=== PATIENT | male | born 1970 | race Caucasian/White ===

== ENCOUNTER 2019-06-02 20:55 | Inpatient (IN) | payer MEDICAID, OTHER ==
[~2019-06-02] VITALS: Ht 167.6 cm; Wt 69.6 kg
[2019-06-02] MEDS ORDERED: HYDROmorphone 1 MG/ML, 1ML INJ ONE (21:29)
[2019-06-02] MEDS ORDERED: ONDANSETRON 2MG/ML, 2ML ONE (21:29)
[2019-06-02] MEDS ORDERED: SODIUM CHLORIDE 0.9% 1,000ML IVBOLUS ONE ×3 (21:30→22:30)
[2019-06-02] MEDS ORDERED: SODIUM CHLORIDE FLUSH 10ML SYR IVF ONE ×2 (21:30→22:30)
[2019-06-02] MEDS ORDERED: ONDANSETRON 2MG/ML, 2ML IVPush ONE (21:30)
[2019-06-02] MEDS ORDERED: HYDROmorphone 2 MG/ML, 1ML IVPush PRN (21:30)
--- NOTE | 2019-06-02 21:30 | NUR ---
Late entry: Pt arrives to ed with c/o of abd pain and new onset of chest pain and hernia as well. Pt denies recent trauma. Pt found to be hotn and tachycardic in room. Pt is still a/ox4. Pt is tender with palpation to abdomen. Pt had piv placed and medicated per emar. awaiting further orders.
[2019-06-02] MEDS ORDERED: FENTANYL PF 100 MCG/2ML ONE (21:36)
[2019-06-02 21:38] LABS: MEAN CORPUSCULAR HEMOGLOBIN 30.2 pg (27.5-34.5); MEAN CORPUSCULAR HGB CONC 33.3 g/dL (33.2-36.2); MEAN CORPUSCULAR VOLUME 90.7 fL (81-97); MEAN PLATELET VOLUME 7.9 fL (7.4-10.4); PLATELET COUNT 273 x10^3/uL (130-400); RED BLOOD COUNT 4.96 x10^6/uL (4.38-5.82); RED CELL DISTRIBUTION WIDTH 13.4 % (9.4-14.8)
[2019-06-02] MEDS: FENTANYL PF 100 MCG/2ML IVPush PRN ×2 (21:40→23:17)
--- NOTE | 2019-06-02 21:44 | NUR ---
CT PENDING CREATINE.
[2019-06-02 21:50] LABS: ALANINE AMINOTRANSFERASE 24 U/L (12-78); ALBUMIN 2.8 g/dL (3.4-5.0); ANION GAP 12 mmol/L (5-15); CHLORIDE 101 mmol/L (98-107); CREATININE 2.27 mg/dL (0.7-1.3)
[2019-06-02 21:54] LABS: ALKALINE PHOSPHATASE 96 U/L (45-117); BILIRUBIN,TOTAL 2.8 mg/dL (0.2-1.0); TOTAL PROTEIN 7.4 g/dL (6.4-8.2)
[2019-06-02 21:55] LABS: MD YES
[2019-06-02 21:56] LABS: TROPONIN I 0.313 ng/mL (0.000-0.045)
[2019-06-02 21:57] LABS: BAND#(MANUAL) 3.61 x10^3/uL; BANDS%(MANUAL) 14 % (0-7); LYMPH#(MANUAL) 1.55 x10^3/uL (1-3.4); LYMPHS% (MANUAL) 6 % (22-44); MONOS#(MANUAL) 1.03 x10^3/uL (0.3-2.7); MONOS% (MANUAL) 4 % (2-9); SEG#(MANUAL) 19.61 x10^3/uL (1.8-6.8); SEGS% (MANUAL) 76 % (42-75)
[2019-06-02 21:58] LABS: <PLATELET ESTIMATE> ADEQUATE; <PLT MORPHOLOGY> NORMAL PLT MORPH; <RBC MORPHOLOGY> NORMAL
--- NOTE | 2019-06-02 22:11 | NUR ---
Spoke provider, pt labs indicating multiorgan failure. at this time we need to give 30cc/kg, and pt to have ct with contrast. Pt conditon updated to charge nurseDEE DEE Peterson.
[2019-06-02] MEDS ORDERED: VANCOMYCIN PER PHARMACY MC ONE (22:30)
[2019-06-02] MEDS ORDERED: VANCOMYCIN 1,500 MG in SODIUM CHLORIDE 0.9% 250 ML IV ONE (22:30)
[2019-06-02] MEDS ORDERED: PIPERACILLIN/TAZO/PMX 3.375GM 50 ML IVPB ONE (22:30)
[2019-06-02] MEDS ORDERED: OMNIPAQUE 350 MG/ML, 100ML BOTTLE ONE (22:36)
[2019-06-02] MEDS ORDERED: PIPERACILLIN/TAZO/PMX 3.375GM 50 ML ONE (22:52)
[2019-06-02] MEDS ORDERED: AZITHROMYCIN 500 MG in SODIUM CHLORIDE 0.9% 250 ML IV ONE (23:00)
--- NOTE | 2019-06-02 23:23 | NUR ---
BLOOD CULTURES COLLECTED, ABX STARTED. FLUID MAINTENANCE STARTED.
[2019-06-02] MEDS ORDERED: ASPIRIN 325 MG TABLET PO ONE (23:30)
--- NOTE | 2019-06-02 23:38 | NUR ---
pT MOVED TO TRAUMA 4 AT MD REQUEST FOR SPACE TO PLACE CVAD TRIPLE LUMEN IN PATIENT.
--- NOTE | 2019-06-02 23:39 | NUR ---
Bedside report to Norberto FUNEZ
--- NOTE | 2019-06-02 23:39 | NUR ---
This rn assumed care of pt. Drips infusing appropriately. Will set up for central line.
[2019-06-02] MEDS ORDERED: NOREPINEPHRINE 8 MG in SODIUM CHLORIDE 0.9% 242 ML IV PRN (23:40)
[2019-06-02] MEDS ORDERED: LIDOCAINE 1%-EPI 1:100K, 20ML ONE (23:46)
--- NOTE | 2019-06-02 23:49 | NUR ---
Central line consent signed and placed on chart. Awaiting md for placement.
[2019-06-03] MEDS ORDERED: ACETAMINOPHEN 650 MG SUPP PR PRN
[2019-06-03] MEDS: AZITHROMYCIN 500 MG in SODIUM CHLORIDE 0.9% 250 ML IVPB SCH
[2019-06-03] MEDS ORDERED: SODIUM CHLORIDE 0.9% 1,000ML IVBOLUS ONE
[2019-06-03] MEDS ORDERED: GUAIFENESIN/COD200MG-20MG/10ML LIQUID PO PRN
[2019-06-03] MEDS ORDERED: morphine SULFATE 10 MG/ML, 1ML IVPush PRN
[2019-06-03] MEDS ORDERED: SODIUM CHLORIDE 0.9%, 500ML IVBOLUS PRN ×2
[2019-06-03] MEDS ORDERED: PHARMACY MAY ADJ FOR RENAL FX MC PRN
[2019-06-03] MEDS ORDERED: VANCOMYCIN PER PHARMACY MC PRN
[2019-06-03] MEDS ORDERED: ONDANSETRON 2MG/ML, 2ML IVPB PRN
[2019-06-03] MEDS ORDERED: NOREPINEPHRINE 8 MG in SODIUM CHLORIDE 0.9% 242 ML IV PRN
--- NOTE | 2019-06-03 00:27 | NUR ---
Central line placed at this time via md. Bp map good w/o levo. Levo in room for potential need of bp support.
--- NOTE | 2019-06-03 00:49 | NUR ---
Central line ok to be used per ERMD and cxr.
[2019-06-03 00:55] LABS: ALANINE AMINOTRANSFERASE 18 U/L (12-78); ALBUMIN 2.1 g/dL (3.4-5.0); ANION GAP 8 mmol/L (5-15); CALCIUM 7.3 mg/dL (8.5-10.1); CHLORIDE 107 mmol/L (98-107)
[2019-06-03 00:58] LABS: HCT (SEDRATE) 38.4 % (39.2-51.8)
[2019-06-03 01:00] LABS: ALKALINE PHOSPHATASE 71 U/L (45-117); BILIRUBIN,TOTAL 2.4 mg/dL (0.2-1.0); FREE T4 (FREE THYROXINE) 1.16 ng/dL (0.76-1.46); TOTAL PROTEIN 5.8 g/dL (6.4-8.2); TROPONIN I 0.191 ng/mL (0.000-0.045)
[2019-06-03] MEDS: HEPARIN 5,000 UNITS/ML, 1ML SQ SCH ×4 (01:58→23:54)
[2019-06-03] MEDS: NICOTINE 14MG/24 HR PATCH.TD24 TD SCH ×2 (01:58→23:51)
[2019-06-03] MEDS: PIPERACILLIN/TAZO/PMX 4.5GM 50 ML IVPB SCH ×5 (01:58→23:54)
[2019-06-03] MEDS: PANTOPRAZOLE 40 MG IV IV SCH ×2 (01:58→23:55)
[2019-06-03] MEDS ORDERED: PHARMACOKINETIC MONITORING MC PRN (02:30)
[2019-06-03] MEDS ORDERED: PHARMACOKINETIC CONSULTATION MC ONE (02:30)
[2019-06-03] MEDS: OXYcodone IR 5MG TABLET PO PRN ×4 (03:04→22:03)
[2019-06-03 03:21] VITALS: BP 101/69
[2019-06-03 05:08] LABS: MEAN CORPUSCULAR HEMOGLOBIN 30.2 pg (27.5-34.5); MEAN CORPUSCULAR VOLUME 91.6 fL (81-97); MEAN PLATELET VOLUME 7.8 fL (7.4-10.4); PLATELET COUNT 285 x10^3/uL (130-400); RED BLOOD COUNT 4.38 x10^6/uL (4.38-5.82); RED CELL DISTRIBUTION WIDTH 13.7 % (9.4-14.8)
[2019-06-03 05:15] LABS: ALBUMIN 2.1 g/dL (3.4-5.0); ANION GAP 8 mmol/L (5-15); CALCIUM 7.2 mg/dL (8.5-10.1); CHLORIDE 109 mmol/L (98-107)
[2019-06-03 05:22] LABS: ALANINE AMINOTRANSFERASE 17 U/L (12-78); ALKALINE PHOSPHATASE 76 U/L (45-117); BILIRUBIN,TOTAL 2.4 mg/dL (0.2-1.0); TOTAL PROTEIN 5.9 g/dL (6.4-8.2); TROPONIN I 0.194 ng/mL (0.000-0.045)
[2019-06-03 05:38] LABS: MD YES
[2019-06-03 05:39] LABS: BAND#(MANUAL) 4.52 x10^3/uL; BANDS%(MANUAL) 18 % (0-7); LYMPH#(MANUAL) 1.76 x10^3/uL (1-3.4); LYMPHS% (MANUAL) 7 % (22-44); METAMYELOCYTES% (MANUAL) 2 % (0-1); MONOS% (MANUAL) 4 % (2-9); SEG#(MANUAL) 17.32 x10^3/uL (1.8-6.8); SEGS% (MANUAL) 69 % (42-75)
[2019-06-03 05:40] LABS: <RBC MORPHOLOGY> NORMAL; PMNS WITH VACUOLES 1+
[2019-06-03 05:41] LABS: <PLATELET ESTIMATE> ADEQUATE; <PLT MORPHOLOGY> NORMAL PLT MORPH
[2019-06-03 07:54] LABS: CULTURE INDICATED? NO; MICROSCOPIC NOT IND
[2019-06-03] MEDS ORDERED: MAGNESIUM SULFATE PMX 4GM/100M 100 ML IVPB ONE (10:30)
[2019-06-03 13:01] LABS: RAPID INFLUENZA A Negative (Negative); RAPID INFLUENZA B Negative (Negative)
[2019-06-03 13:33] LABS: TROPONIN I 0.531 ng/mL (0.000-0.045)
[2019-06-03 19:42] LABS: TROPONIN I 0.587 ng/mL (0.000-0.045)
[2019-06-03] MEDS: ACETAMINOPHEN 650 MG/20.3 ML UDC PO PRN (22:04)
[2019-06-03] MEDS ORDERED: VANCOMYCIN 1,400 MG in SODIUM CHLORIDE 0.9% 250 ML IV SCH (23:00)
[2019-06-04] MEDS: AZITHROMYCIN 500 MG in SODIUM CHLORIDE 0.9% 250 ML IVPB SCH (00:56)
[2019-06-04 01:21] LABS: TROPONIN I 0.527 ng/mL (0.000-0.045)
[2019-06-04 05:17] LABS: ANION GAP 5 mmol/L (5-15); CALCIUM 8.5 mg/dL (8.5-10.1); CHLORIDE 108 mmol/L (98-107)
[2019-06-04 05:20] LABS: CREATININE 1.02 mg/dL (0.7-1.3)
[2019-06-04 05:28] LABS: MEAN CORPUSCULAR HEMOGLOBIN 30.1 pg (27.5-34.5); MEAN CORPUSCULAR HGB CONC 32.9 g/dL (33.2-36.2); MEAN CORPUSCULAR VOLUME 91.4 fL (81-97); MEAN PLATELET VOLUME 7.9 fL (7.4-10.4); PLATELET COUNT 293 x10^3/uL (130-400); RED BLOOD COUNT 4.51 x10^6/uL (4.38-5.82); RED CELL DISTRIBUTION WIDTH 13.5 % (9.4-14.8)
[2019-06-04 05:50] LABS: MD YES
[2019-06-04 05:52] LABS: <RBC MORPHOLOGY> NORMAL; BAND#(MANUAL) 0.97 x10^3/uL; BANDS%(MANUAL) 5 % (0-7); LYMPH#(MANUAL) 1.55 x10^3/uL (1-3.4); LYMPHS% (MANUAL) 8 % (22-44); MONOS#(MANUAL) 0.97 x10^3/uL (0.3-2.7); MONOS% (MANUAL) 5 % (2-9); SEG#(MANUAL) 15.91 x10^3/uL (1.8-6.8); SEGS% (MANUAL) 82 % (42-75)
[2019-06-04 05:53] LABS: <PLATELET ESTIMATE> ADEQUATE; <PLT MORPHOLOGY> NORMAL PLT MORPH
[2019-06-04] MEDS: PIPERACILLIN/TAZO/PMX 4.5GM 50 ML IVPB SCH ×4 (05:58→23:52)
[2019-06-04] MEDS: HEPARIN 5,000 UNITS/ML, 1ML SQ SCH ×3 (08:32→23:51)
[2019-06-04] MEDS: OXYcodone IR 5MG TABLET PO PRN (16:55)
[2019-06-04] MEDS: PANTOPRAZOLE 40 MG IV IV SCH (23:51)
[2019-06-04] MEDS: NICOTINE 14MG/24 HR PATCH.TD24 TD SCH (23:52)
[2019-06-05] MEDS: AZITHROMYCIN 500 MG in SODIUM CHLORIDE 0.9% 250 ML IVPB SCH (01:00)
[2019-06-05 05:25] LABS: MEAN CORPUSCULAR HEMOGLOBIN 30.8 pg (27.5-34.5); MEAN CORPUSCULAR HGB CONC 33.9 g/dL (33.2-36.2); MEAN PLATELET VOLUME 7.6 fL (7.4-10.4); PLATELET COUNT 304 x10^3/uL (130-400); RED BLOOD COUNT 4.14 x10^6/uL (4.38-5.82); RED CELL DISTRIBUTION WIDTH 13.6 % (9.4-14.8)
[2019-06-05 05:34] LABS: ALANINE AMINOTRANSFERASE 19 U/L (12-78); ALBUMIN 1.9 g/dL (3.4-5.0); ANION GAP 8 mmol/L (5-15); CALCIUM 8.3 mg/dL (8.5-10.1); CHLORIDE 108 mmol/L (98-107); CREATININE 0.87 mg/dL (0.7-1.3)
[2019-06-05 05:36] LABS: ALKALINE PHOSPHATASE 99 U/L (45-117); BILIRUBIN,TOTAL 0.8 mg/dL (0.2-1.0); TOTAL PROTEIN 6.4 g/dL (6.4-8.2)
[2019-06-05 05:43] LABS: BASOPHILS # (AUTO) 0.13 x10^3/uL (0-0.1); BASOPHILS % (AUTO) 1 % (0-1); EOSINOPHILS # (AUTO) 0.15 x10^3/uL (0-0.4); EOSINOPHILS % (AUTO) 1 % (1-7); LYMPHOCYTES # (AUTO) 1.79 x10^3/uL (1-3.4); LYMPHOCYTES % (AUTO) 14 % (22-44); MD SCAN; MONOCYTES % (AUTO) 5 % (2-9); NEUTROPHILS # (AUTO) 9.97 x10^3/uL (1.8-6.8); NEUTROPHILS % (AUTO) 79 % (42-75)
[2019-06-05] MEDS: PIPERACILLIN/TAZO/PMX 4.5GM 50 ML IVPB SCH (05:52)
[2019-06-05] MEDS: HEPARIN 5,000 UNITS/ML, 1ML SQ SCH (08:19)
[2019-06-05] MEDS ORDERED: POTASSIUM CHLORIDE 20 MEQ TAB.ER.PRT PO ONE (10:00)
[2019-06-05] MEDS ORDERED: FUROSEMIDE 20 MG/2 ML IV ONE (10:00)
[2019-06-05] MEDS: LISINOPRIL 5 MG TABLET PO SCH ×2 (10:14→20:23)
[2019-06-05] MEDS: SPIRONOLACTONE 25 MG TABLET PO SCH (10:14)
[2019-06-05] MEDS: CEFTRIAXONE PMX 2GM/50ML 50 ML IV SCH (13:14)
[2019-06-05 17:57] VITALS: BP 110/73
[2019-06-05 20:20] VITALS: BP 123/84
[2019-06-05] MEDS: ENOXAPARIN 40 MG/0.4 ML SQ SCH (20:23)
[2019-06-05] MEDS: ACETAMINOPHEN 650 MG/20.3 ML UDC PO PRN (20:23)
[2019-06-05] MEDS: TEMAZEPAM 15 MG CAPSULE PO PRN (20:23)
[2019-06-06 00:43] VITALS: BP 97/61
[2019-06-06] MEDS ORDERED: TEMAZEPAM 15 MG CAPSULE PO ONE (02:00)
[2019-06-06 02:40] VITALS: BP 107/71
[2019-06-06 06:21] LABS: ANION GAP 9 mmol/L (5-15); CHLORIDE 110 mmol/L (98-107); CREATININE 0.81 mg/dL (0.7-1.3)
[2019-06-06 06:28] LABS: BASOPHILS # (AUTO) 0.03 x10^3/uL (0-0.1); BASOPHILS % (AUTO) 0 % (0-1); EOSINOPHILS # (AUTO) 0.13 x10^3/uL (0-0.4); EOSINOPHILS % (AUTO) 1 % (1-7); LYMPHOCYTES # (AUTO) 2.08 x10^3/uL (1-3.4); LYMPHOCYTES % (AUTO) 22 % (22-44); MD NO; MEAN CORPUSCULAR HEMOGLOBIN 29.8 pg (27.5-34.5); MEAN CORPUSCULAR HGB CONC 33.2 g/dL (33.2-36.2); MEAN CORPUSCULAR VOLUME 89.6 fL (81-97); MEAN PLATELET VOLUME 7.8 fL (7.4-10.4); MONOCYTES # (AUTO) 0.49 x10^3/uL (0.2-0.8); MONOCYTES % (AUTO) 5 % (2-9); NEUTROPHILS # (AUTO) 6.62 x10^3/uL (1.8-6.8); NEUTROPHILS % (AUTO) 71 % (42-75); PLATELET COUNT 325 x10^3/uL (130-400); RED CELL DISTRIBUTION WIDTH 13.6 % (9.4-14.8)
[2019-06-06 08:21] VITALS: BP 141/94
[2019-06-06] MEDS: LISINOPRIL 5 MG TABLET PO SCH (09:32)
[2019-06-06] MEDS: SPIRONOLACTONE 25 MG TABLET PO SCH (09:32)
[2019-06-06] MEDS: CEFTRIAXONE PMX 2GM/50ML 50 ML IV SCH (12:55)
[2019-06-06 13:11] VITALS: BP 122/79
[2019-06-06 20:20] VITALS: BP 116/77
[2019-06-06] MEDS: LISINOPRIL 10 MG TABLET PO SCH (21:53)
[2019-06-06] MEDS: ENOXAPARIN 40 MG/0.4 ML SQ SCH (21:54)
[2019-06-07 01:42] VITALS: BP 107/70
[2019-06-07 05:08] LABS: BASOPHILS # (AUTO) 0.02 x10^3/uL (0-0.1); BASOPHILS % (AUTO) 0 % (0-1); EOSINOPHILS # (AUTO) 0.22 x10^3/uL (0-0.4); EOSINOPHILS % (AUTO) 2 % (1-7); LYMPHOCYTES # (AUTO) 2.73 x10^3/uL (1-3.4); LYMPHOCYTES % (AUTO) 27 % (22-44); MD NO; MEAN CORPUSCULAR HEMOGLOBIN 29.8 pg (27.5-34.5); MEAN CORPUSCULAR HGB CONC 32.9 g/dL (33.2-36.2); MEAN CORPUSCULAR VOLUME 90.6 fL (81-97); MONOCYTES # (AUTO) 0.68 x10^3/uL (0.2-0.8); MONOCYTES % (AUTO) 7 % (2-9); NEUTROPHILS # (AUTO) 6.41 x10^3/uL (1.8-6.8); NEUTROPHILS % (AUTO) 64 % (42-75); PLATELET COUNT 388 x10^3/uL (130-400); RED BLOOD COUNT 4.89 x10^6/uL (4.38-5.82)
[2019-06-07 05:12] LABS: ANION GAP 9 mmol/L (5-15); CALCIUM 8.8 mg/dL (8.5-10.1); CHLORIDE 110 mmol/L (98-107); CREATININE 0.93 mg/dL (0.7-1.3)
[2019-06-07 08:13] VITALS: BP 105/65
[2019-06-07 09:30] VITALS: BP 107/71
[2019-06-07] MEDS: SPIRONOLACTONE 25 MG TABLET PO SCH (09:33)
[2019-06-07] MEDS: LISINOPRIL 10 MG TABLET PO SCH ×2 (09:33→21:40)
[2019-06-07] MEDS ORDERED: MAGNESIUM SULFATE PMX 4GM/100M 100 ML IV ONE (10:30)
[2019-06-07] MEDS: CEFTRIAXONE PMX 2GM/50ML 50 ML IV SCH (12:00)
[2019-06-07] MEDS ORDERED: morphine SULFATE 10 MG/ML, 1ML IVPush PRN (12:00)
[2019-06-07 12:31] VITALS: BP 115/72
[2019-06-07] MEDS ORDERED: MAGNESIUM SULFATE PMX 2GM/50ML 50 ML IV ONE (13:30)
[2019-06-07 20:00] VITALS: BP 108/77
[2019-06-07] MEDS: ENOXAPARIN 40 MG/0.4 ML SQ SCH (21:00)
[2019-06-08] MEDS: TEMAZEPAM 15 MG CAPSULE PO PRN ×2 (00:36→21:36)
[2019-06-08 02:00] VITALS: BP 110/68
[2019-06-08 06:14] LABS: BASOPHILS # (AUTO) 0.05 x10^3/uL (0-0.1); BASOPHILS % (AUTO) 1 % (0-1); EOSINOPHILS % (AUTO) 2 % (1-7); LYMPHOCYTES % (AUTO) 32 % (22-44); MD NO; MEAN CORPUSCULAR HEMOGLOBIN 29.7 pg (27.5-34.5); MEAN CORPUSCULAR HGB CONC 32.9 g/dL (33.2-36.2); MEAN CORPUSCULAR VOLUME 90.2 fL (81-97); MEAN PLATELET VOLUME 7.9 fL (7.4-10.4); MONOCYTES # (AUTO) 0.64 x10^3/uL (0.2-0.8); MONOCYTES % (AUTO) 8 % (2-9); NEUTROPHILS # (AUTO) 4.83 x10^3/uL (1.8-6.8); NEUTROPHILS % (AUTO) 57 % (42-75); PLATELET COUNT 426 x10^3/uL (130-400); RED BLOOD COUNT 4.84 x10^6/uL (4.38-5.82); RED CELL DISTRIBUTION WIDTH 13.7 % (9.4-14.8)
[2019-06-08 06:17] LABS: ALBUMIN 2.5 g/dL (3.4-5.0); ANION GAP 9 mmol/L (5-15); CALCIUM 8.9 mg/dL (8.5-10.1); CHLORIDE 110 mmol/L (98-107)
[2019-06-08 06:21] LABS: ALANINE AMINOTRANSFERASE 58 U/L (12-78); ALKALINE PHOSPHATASE 166 U/L (45-117); BILIRUBIN,TOTAL 0.7 mg/dL (0.2-1.0); CREATININE 0.84 mg/dL (0.7-1.3); TOTAL PROTEIN 7.4 g/dL (6.4-8.2)
[2019-06-08 07:28] VITALS: BP 113/73
[2019-06-08] MEDS: SPIRONOLACTONE 25 MG TABLET PO SCH (09:18)
[2019-06-08] MEDS: THIAMINE 100MG TABLET PO SCH (09:18)
[2019-06-08] MEDS: LISINOPRIL 10 MG TABLET PO SCH ×2 (09:18→21:36)
[2019-06-08] MEDS: SODIUM CHLORIDE 0.9% 1,000 ML IV SCH ×2 (12:00→19:35)
[2019-06-08] MEDS: CEFTRIAXONE PMX 2GM/50ML 50 ML IV SCH (12:31)
[2019-06-08 13:13] VITALS: BP 105/67
[2019-06-08 19:46] VITALS: BP 121/85
[2019-06-08] MEDS: ENOXAPARIN 40 MG/0.4 ML SQ SCH (21:00)
[2019-06-09 01:42] VITALS: BP 120/81
[2019-06-09] MEDS: SODIUM CHLORIDE 0.9% 1,000 ML IV SCH ×3 (04:00→20:00)
[2019-06-09 07:38] VITALS: BP 117/77
[2019-06-09] MEDS: SPIRONOLACTONE 25 MG TABLET PO SCH (09:06)
[2019-06-09] MEDS: THIAMINE 100MG TABLET PO SCH (09:06)
[2019-06-09] MEDS: LISINOPRIL 10 MG TABLET PO SCH ×2 (09:06→20:22)
[2019-06-09] MEDS: CEFTRIAXONE PMX 2GM/50ML 50 ML IV SCH (12:56)
[2019-06-09 13:04] VITALS: BP 101/69
[2019-06-09] MEDS: ENOXAPARIN 40 MG/0.4 ML SQ SCH (20:15)
[2019-06-09 20:22] VITALS: BP 119/77
[2019-06-10] MEDS: SODIUM CHLORIDE 0.9% 1,000 ML IV SCH ×3 (00:05→20:00)
[2019-06-10 00:36] VITALS: BP 118/68
[2019-06-10 06:10] LABS: ANION GAP 8 mmol/L (5-15); CALCIUM 8.8 mg/dL (8.5-10.1); CHLORIDE 108 mmol/L (98-107)
[2019-06-10 06:11] LABS: CREATININE 0.96 mg/dL (0.7-1.3)
[2019-06-10 06:13] LABS: BASOPHILS # (AUTO) 0.04 x10^3/uL (0-0.1); BASOPHILS % (AUTO) 1 % (0-1); EOSINOPHILS # (AUTO) 0.25 x10^3/uL (0-0.4); EOSINOPHILS % (AUTO) 3 % (1-7); LYMPHOCYTES # (AUTO) 2.64 x10^3/uL (1-3.4); LYMPHOCYTES % (AUTO) 35 % (22-44); MD NO; MEAN CORPUSCULAR HEMOGLOBIN 30.1 pg (27.5-34.5); MEAN CORPUSCULAR HGB CONC 33.1 g/dL (33.2-36.2); MEAN CORPUSCULAR VOLUME 91.1 fL (81-97); MEAN PLATELET VOLUME 7.4 fL (7.4-10.4); MONOCYTES # (AUTO) 0.52 x10^3/uL (0.2-0.8); MONOCYTES % (AUTO) 7 % (2-9); NEUTROPHILS # (AUTO) 4.21 x10^3/uL (1.8-6.8); NEUTROPHILS % (AUTO) 55 % (42-75); PLATELET COUNT 613 x10^3/uL (130-400); RED BLOOD COUNT 4.94 x10^6/uL (4.38-5.82); RED CELL DISTRIBUTION WIDTH 13.7 % (9.4-14.8)
[2019-06-10 09:12] VITALS: BP 103/72
[2019-06-10] MEDS: SPIRONOLACTONE 25 MG TABLET PO SCH (09:43)
[2019-06-10] MEDS: LISINOPRIL 10 MG TABLET PO SCH ×2 (09:43→22:22)
[2019-06-10] MEDS: THIAMINE 100MG TABLET PO SCH (09:44)
[2019-06-10] MEDS: FAMOTIDINE 20 MG TABLET PO SCH ×2 (12:40→22:22)
[2019-06-10] MEDS: DIPHENHYDRAMINE 25 MG CAPSULE PO PRN ×2 (12:42→22:22)
[2019-06-10] MEDS: CEFTRIAXONE PMX 2GM/50ML 50 ML IV SCH (13:06)
[2019-06-10 14:36] VITALS: BP 100/70
[2019-06-10] MEDS: ENOXAPARIN 40 MG/0.4 ML SQ SCH (21:00)
[2019-06-10 22:16] VITALS: BP 105/68
[2019-06-11 01:32] VITALS: BP 103/65
[2019-06-11] MEDS: SODIUM CHLORIDE 0.9% 1,000 ML IV SCH ×3 (01:40→20:00)
[2019-06-11 08:39] VITALS: BP 92/58
[2019-06-11] MEDS: FAMOTIDINE 20 MG TABLET PO SCH ×2 (08:44→21:14)
[2019-06-11] MEDS: LISINOPRIL 10 MG TABLET PO SCH ×2 (08:44→21:15)
[2019-06-11] MEDS: THIAMINE 100MG TABLET PO SCH (08:44)
[2019-06-11] MEDS: SPIRONOLACTONE 25 MG TABLET PO SCH (08:44)
[2019-06-11] MEDS: DIPHENHYDRAMINE 25 MG CAPSULE PO PRN ×2 (08:47→21:14)
[2019-06-11] MEDS: CEFTRIAXONE PMX 2GM/50ML 50 ML IV SCH (11:47)
[2019-06-11 14:38] VITALS: BP 98/62
[2019-06-11 21:12] VITALS: BP 105/67
[2019-06-11] MEDS: ENOXAPARIN 40 MG/0.4 ML SQ SCH (21:14)
[2019-06-12 02:44] VITALS: BP 99/63
[2019-06-12] MEDS: SODIUM CHLORIDE 0.9% 1,000 ML IV SCH (04:00)
[2019-06-12 05:55] LABS: BASOPHILS # (AUTO) 0.07 x10^3/uL (0-0.1); BASOPHILS % (AUTO) 1 % (0-1); EOSINOPHILS # (AUTO) 0.14 x10^3/uL (0-0.4); EOSINOPHILS % (AUTO) 2 % (1-7); LYMPHOCYTES # (AUTO) 2.72 x10^3/uL (1-3.4); LYMPHOCYTES % (AUTO) 39 % (22-44); MD NO; MEAN CORPUSCULAR HEMOGLOBIN 30.3 pg (27.5-34.5); MEAN CORPUSCULAR HGB CONC 33.3 g/dL (33.2-36.2); MEAN CORPUSCULAR VOLUME 90.9 fL (81-97); MEAN PLATELET VOLUME 7.3 fL (7.4-10.4); MONOCYTES # (AUTO) 0.45 x10^3/uL (0.2-0.8); MONOCYTES % (AUTO) 6 % (2-9); NEUTROPHILS % (AUTO) 52 % (42-75); PLATELET COUNT 700 x10^3/uL (130-400); RED BLOOD COUNT 4.93 x10^6/uL (4.38-5.82); RED CELL DISTRIBUTION WIDTH 13.9 % (9.4-14.8)
[2019-06-12 06:02] LABS: ANION GAP 7 mmol/L (5-15); CALCIUM 8.8 mg/dL (8.5-10.1); CHLORIDE 111 mmol/L (98-107)
[2019-06-12 06:04] LABS: CREATININE 1.05 mg/dL (0.7-1.3)
[2019-06-12 08:00] VITALS: BP 111/69
[2019-06-12] MEDS: DIPHENHYDRAMINE 25 MG CAPSULE PO PRN ×2 (08:31→21:16)
[2019-06-12] MEDS: FAMOTIDINE 20 MG TABLET PO SCH ×2 (08:31→21:17)
[2019-06-12] MEDS: THIAMINE 100MG TABLET PO SCH (08:32)
[2019-06-12] MEDS: SPIRONOLACTONE 25 MG TABLET PO SCH (08:32)
[2019-06-12] MEDS: LISINOPRIL 10 MG TABLET PO SCH ×2 (08:32→21:16)
[2019-06-12 11:10] VITALS: BP 104/70
[2019-06-12] MEDS: CEFTRIAXONE PMX 2GM/50ML 50 ML IV SCH (13:27)
[2019-06-12 15:59] VITALS: BP 99/66
[2019-06-12] MEDS ORDERED: METRONIDAZOLE GEL 1%, 60GM TP ONE (17:00)
[2019-06-12 21:14] VITALS: BP 101/65
[2019-06-12] MEDS: ENOXAPARIN 40 MG/0.4 ML SQ SCH (21:15)
[2019-06-13 02:37] VITALS: BP 95/55
[2019-06-13] MEDS ORDERED: METRONIDAZOLE GEL 1%, 60GM TP SCH ×2 (06:00→10:00)
[2019-06-13] MEDS: THIAMINE 100MG TABLET PO SCH (08:34)
[2019-06-13] MEDS: SPIRONOLACTONE 25 MG TABLET PO SCH (08:34)
[2019-06-13] MEDS: LISINOPRIL 10 MG TABLET PO SCH ×2 (08:35→20:38)
[2019-06-13] MEDS: FAMOTIDINE 20 MG TABLET PO SCH ×2 (08:35→20:38)
[2019-06-13] MEDS: DIPHENHYDRAMINE 25 MG CAPSULE PO PRN ×2 (08:36→20:39)
[2019-06-13 09:56] VITALS: BP 98/65
[2019-06-13] MEDS: CEFTRIAXONE PMX 2GM/50ML 50 ML IV SCH (12:32)
[2019-06-13 15:00] VITALS: BP 123/68
[2019-06-13] MEDS: METRONIDAZOLE GEL 1%, 60GM TP SCH (18:30)
[2019-06-13 20:36] VITALS: BP 110/70
[2019-06-13] MEDS: ENOXAPARIN 40 MG/0.4 ML SQ SCH (20:38)
[2019-06-14 00:40] VITALS: BP 99/64
[2019-06-14] MEDS: METRONIDAZOLE GEL 1%, 60GM TP SCH ×2 (05:38→16:49)
[2019-06-14 08:47] VITALS: BP 106/66
[2019-06-14] MEDS: SPIRONOLACTONE 25 MG TABLET PO SCH (09:16)
[2019-06-14] MEDS: DIPHENHYDRAMINE 25 MG CAPSULE PO PRN ×2 (09:17→20:30)
[2019-06-14] MEDS: LISINOPRIL 10 MG TABLET PO SCH ×2 (09:18→20:30)
[2019-06-14] MEDS: OXYcodone IR 5MG TABLET PO PRN (09:18)
[2019-06-14] MEDS: FAMOTIDINE 20 MG TABLET PO SCH ×2 (09:19→20:30)
[2019-06-14] MEDS: CEFTRIAXONE PMX 2GM/50ML 50 ML IV SCH (12:31)
[2019-06-14] MEDS: THIAMINE 100MG TABLET PO SCH (12:31)
[2019-06-14 15:00] VITALS: BP 96/64
[2019-06-14 20:28] VITALS: BP 100/64
[2019-06-14] MEDS: ENOXAPARIN 40 MG/0.4 ML SQ SCH (20:31)
[2019-06-15 04:36] VITALS: BP 103/68
[2019-06-15] MEDS: METRONIDAZOLE GEL 1%, 60GM TP SCH ×2 (04:39→17:47)
[2019-06-15 05:55] LABS: INTERNATIONAL NORMALIZED RATIO 0.93 (0.93-1.1); PROTHROMBIN TIME 9.8 Seconds (9.6-11.5)
[2019-06-15 05:59] LABS: ANION GAP 9 mmol/L (5-15); CALCIUM 9.1 mg/dL (8.5-10.1); CHLORIDE 107 mmol/L (98-107); CREATININE 1.04 mg/dL (0.7-1.3)
[2019-06-15 06:11] LABS: BASOPHILS # (AUTO) 0.07 x10^3/uL (0-0.1); BASOPHILS % (AUTO) 1 % (0-1); EOSINOPHILS # (AUTO) 0.17 x10^3/uL (0-0.4); EOSINOPHILS % (AUTO) 2 % (1-7); LYMPHOCYTES # (AUTO) 2.54 x10^3/uL (1-3.4); LYMPHOCYTES % (AUTO) 33 % (22-44); MD NO; MEAN CORPUSCULAR HEMOGLOBIN 29.9 pg (27.5-34.5); MEAN CORPUSCULAR HGB CONC 33.3 g/dL (33.2-36.2); MEAN CORPUSCULAR VOLUME 89.9 fL (81-97); MEAN PLATELET VOLUME 7.3 fL (7.4-10.4); MONOCYTES # (AUTO) 0.43 x10^3/uL (0.2-0.8); MONOCYTES % (AUTO) 6 % (2-9); NEUTROPHILS # (AUTO) 4.53 x10^3/uL (1.8-6.8); NEUTROPHILS % (AUTO) 59 % (42-75); PLATELET COUNT 866 x10^3/uL (130-400); RED BLOOD COUNT 5.26 x10^6/uL (4.38-5.82); RED CELL DISTRIBUTION WIDTH 13.8 % (9.4-14.8)
[2019-06-15 08:00] VITALS: BP 119/80
[2019-06-15] MEDS: THIAMINE 100MG TABLET PO SCH (08:23)
[2019-06-15] MEDS: FAMOTIDINE 20 MG TABLET PO SCH ×2 (08:23→20:39)
[2019-06-15] MEDS: SPIRONOLACTONE 25 MG TABLET PO SCH (08:23)
[2019-06-15] MEDS: LISINOPRIL 10 MG TABLET PO SCH ×2 (08:23→20:39)
[2019-06-15] MEDS: OXYcodone IR 5MG TABLET PO PRN (08:29)
[2019-06-15] MEDS ORDERED: CEFAZOLIN PMX 1GM/50ML 50 ML IVPB ONE (10:30)
[2019-06-15] MEDS: ENOXAPARIN 40 MG/0.4 ML SQ SCH (10:57)
[2019-06-15] MEDS: CEFTRIAXONE PMX 2GM/50ML 50 ML IV SCH (12:00)
[2019-06-15 12:42] VITALS: BP 110/75
[2019-06-15 20:27] VITALS: BP 95/59
[2019-06-15] MEDS: DIPHENHYDRAMINE 25 MG CAPSULE PO PRN (20:39)
[2019-06-15] MEDS: TEMAZEPAM 15 MG CAPSULE PO PRN (23:39)
[2019-06-16 04:55] VITALS: BP 100/67
[2019-06-16] MEDS: METRONIDAZOLE GEL 1%, 60GM TP SCH ×2 (04:58→17:30)
[2019-06-16 07:45] VITALS: BP 101/66
[2019-06-16] MEDS ORDERED: MIDAZOLAM 1 MG/ML, 2ML ONE (07:47)
[2019-06-16] MEDS ORDERED: FENTANYL PF 100 MCG/2ML ONE ×3 (07:47→08:49)
[2019-06-16] MEDS ORDERED: PROPOFOL 10 MG/ML, 20ML ONE (07:48)
[2019-06-16] MEDS ORDERED: SUCCINYLCHOLINE 20 MG/ML, 10ML ONE (07:50)
[2019-06-16] MEDS ORDERED: SODIUM CHLORIDE 0.9% PF 10ML ONE ×2 (07:51→09:26)
[2019-06-16] MEDS ORDERED: LIDOCAINE-MPF 2% ,5ML ONE (07:53)
[2019-06-16] MEDS ORDERED: CEFAZOLIN 1,000 MG ONE ×3 (08:00→09:26)
[2019-06-16] MEDS ORDERED: LIDOCAINE 1%, 20ML ONE (08:00)
[2019-06-16] MEDS: FAMOTIDINE 20 MG TABLET PO SCH ×2 (08:01→21:10)
[2019-06-16] MEDS: SPIRONOLACTONE 25 MG TABLET PO SCH (08:01)
[2019-06-16] MEDS: LISINOPRIL 10 MG TABLET PO SCH ×2 (08:01→21:10)
[2019-06-16] MEDS: THIAMINE 100MG TABLET PO SCH (08:02)
[2019-06-16] MEDS ORDERED: PHENYLEPHRINE 10 MG/ML ONE (08:15)
[2019-06-16] MEDS ORDERED: ACETAMINOPHEN 325 MG TABLET PO PRN (08:30)
[2019-06-16] MEDS ORDERED: HYDROmorphone 2 MG/ML, 1ML IVPush PRN (08:30)
[2019-06-16] MEDS ORDERED: ONDANSETRON 2MG/ML, 2ML IV PRN (08:30)
[2019-06-16] MEDS ORDERED: FENTANYL PF 100 MCG/2ML IV PRN (08:30)
[2019-06-16] MEDS ORDERED: OXYcodone 5 MG/5 ML ORAL.SOL UDC PO PRN (08:30)
[2019-06-16] MEDS ORDERED: LABETALOL 5MG/ML, 20ML IV PRN (08:30)
[2019-06-16] MEDS ORDERED: PROMETHAZINE 25 MG/ML, 1ML IV PRN (08:30)
[2019-06-16] MEDS ORDERED: MEPERIDINE/PF 25MG/ML,1ML IVPush PRN (08:30)
[2019-06-16] MEDS ORDERED: EPHEDRINE 50 MG/ML, 1ML IVPush PRN (08:30)
[2019-06-16] MEDS ORDERED: hydrALAzine 20 MG/ML, 1ML IV PRN (08:30)
[2019-06-16] MEDS ORDERED: ONDANSETRON 2MG/ML, 2ML ONE (08:36)
[2019-06-16] MEDS ORDERED: DEXAMETHASONE 4 MG/ML, 1ML ONE ×2 (08:36)
[2019-06-16] MEDS ORDERED: KETOROLAC 30 MG/1 ML ONE (08:36)
[2019-06-16] MEDS ORDERED: EPINEPHRINE 1 MG/ML, 1ML ONE (09:26)
[2019-06-16] MEDS ORDERED: HOLD MEDICATION MC PRN (10:30)
[2019-06-16] MEDS: CEFTRIAXONE PMX 2GM/50ML 50 ML IV SCH (12:13)
[2019-06-16] MEDS: OXYcodone IR 5MG TABLET PO PRN (13:04)
[2019-06-16 16:00] VITALS: BP 101/63
[2019-06-16] MEDS: CEFAZOLIN PMX 1GM/50ML 50 ML IVPB SCH (17:26)
[2019-06-16 20:18] VITALS: BP 115/80
[2019-06-16] MEDS: SODIUM CHLORIDE FLUSH 10ML SYR IVF SCH (21:11)
[2019-06-16] MEDS: DIPHENHYDRAMINE 25 MG CAPSULE PO PRN (21:14)
[2019-06-17] MEDS: CEFAZOLIN PMX 1GM/50ML 50 ML IVPB SCH (00:32)
[2019-06-17] MEDS: TEMAZEPAM 15 MG CAPSULE PO PRN (01:11)
[2019-06-17] MEDS: OXYcodone IR 5MG TABLET PO PRN ×3 (01:12→11:00)
[2019-06-17 01:14] VITALS: BP 129/71
[2019-06-17] MEDS: METRONIDAZOLE GEL 1%, 60GM TP SCH ×3 (05:24→13:56)
[2019-06-17 08:08] VITALS: BP 96/59
[2019-06-17] MEDS: SODIUM CHLORIDE FLUSH 10ML SYR IVF SCH (08:35)
[2019-06-17] MEDS: FAMOTIDINE 20 MG TABLET PO SCH (08:35)
[2019-06-17] MEDS: LISINOPRIL 10 MG TABLET PO SCH (08:35)
[2019-06-17] MEDS: SPIRONOLACTONE 25 MG TABLET PO SCH (08:35)
[2019-06-17] MEDS: THIAMINE 100MG TABLET PO SCH (08:35)
[2019-06-17] MEDS ORDERED: SPIR25TA PO (11:48)
[2019-06-17] MEDS ORDERED: LEVO750T26 PO (11:48)
[2019-06-17] MEDS ORDERED: FAMO20TA7 PO (11:48)
[2019-06-17] MEDS ORDERED: LISI-167 PO (11:48)
[2019-06-17] MEDS ORDERED: OXYC-302 PO (11:48)
[2019-06-17] MEDS ORDERED: METR60GE TP (11:48)
[2019-06-17] MEDS ORDERED: ENOXAPARIN 40 MG/0.4 ML SQ SCH (12:00)
[2019-06-17] MEDS: CEFTRIAXONE PMX 2GM/50ML 50 ML IV SCH (12:03)
== END 2019-06-17 15:05 | disposition home or self-care (01) | DRG 710 ==
LOC: ED 23:36 → EDIP 23:54 → CCU 06-03 01:08 → 5SO 06-05 17:43
PROVIDERS: ADMIT Hospitalist; ATTEND Internal Medicine
PROC: 02HV33Z Insertion of Infusion Device into Superior Vena Cava, Percutaneous Approach (ICD-10-PCS; 2019-06-02)
PROC: B548ZZA Ultrasonography of Superior Vena Cava, Guidance (ICD-10-PCS; 2019-06-02)
PROC: 02HL3JZ Insertion of Pacemaker Lead into Left Ventricle, Percutaneous Approach (ICD-10-PCS; 2019-06-16)
PROC: 02H63JZ Insertion of Pacemaker Lead into Right Atrium, Percutaneous Approach (ICD-10-PCS; 2019-06-16)
PROC: 02HK3JZ Insertion of Pacemaker Lead into Right Ventricle, Percutaneous Approach (ICD-10-PCS; 2019-06-16)
PROC: 0JH607Z Insertion of Cardiac Resynchronization Pacemaker Pulse Generator into Chest Subcutaneous Tissue and Fascia, Open Approach (ICD-10-PCS; principal; 2019-06-16 08:00)
DX: A40.3 Sepsis due to Streptococcus pneumoniae (principal); J96.91 Respiratory failure, unspecified with hypoxia; I21.A1 Myocardial infarction type 2; N17.0 Acute kidney failure with tubular necrosis; R65.21 Severe sepsis with septic shock; I50.43 Acute on chronic combined systolic (congestive) and diastolic (congestive) heart failure; I11.0 Hypertensive heart disease with heart failure; J13 Pneumonia due to Streptococcus pneumoniae; E83.42 Hypomagnesemia; R17 Unspecified jaundice; I47.1 Supraventricular tachycardia; E86.0 Dehydration; I48.91 Unspecified atrial fibrillation; I44.7 Left bundle-branch block, unspecified; F15.10 Other stimulant abuse, uncomplicated; I49.5 Sick sinus syndrome; I44.2 Atrioventricular block, complete; D63.8 Anemia in other chronic diseases classified elsewhere; E87.1 Hypo-osmolality and hyponatremia; E87.2 Acidosis; E88.09 Other disorders of plasma-protein metabolism, not elsewhere classified; F10.20 Alcohol dependence, uncomplicated; F12.10 Cannabis abuse, uncomplicated; F17.210 Nicotine dependence, cigarettes, uncomplicated; I34.0 Nonrheumatic mitral (valve) insufficiency; K40.90 Unilateral inguinal hernia, without obstruction or gangrene, not specified as recurrent; N20.0 Calculus of kidney; Z95.810 Presence of automatic (implantable) cardiac defibrillator
CPT/HCPCS: J3490 ×2; 33208; 33225; 36005; 36415; 71045; 71275; 74177; 80048; 80053; 80307; 81003; 82533; 83605; 83690; 83735; 84100; 84145; 84439; 84443; 84484; 85025; 85610; 85651; 87040; 87077; 87081; 87181; 87400; 93005; 93306; 93308; 93321; 93325; 93356; 94762; 99291; C1769; C1779; C1887; C1892; C2621; G0378; J0171; J0456; J0690; J0696; J1100; J1644; J1650; J1885; J2250; J2405; J2543; J2704; J3010; J3370; Q9967; C1900; C9113; J0330; J1940; J2270; J2370; J3475; J7030; J7050; Q0163

== ENCOUNTER 2019-07-12 22:55 | Emergency (ER) | payer SELFPAY ==
[~2019-07-12] VITALS: Ht 162.6 cm; Wt 73.9 kg
[~2019-07-12 22:55] MED LIST: FAMO20TA7 PO; LEVO750T26 PO; LISI-167 PO; METR60GE TP; OXYC-302 PO; SPIR25TA PO
[2019-07-12 22:58] VITALS: BP 149/73
[2019-07-12] MEDS ORDERED: CEPHALEXIN 500 MG CAPSULE ONE (23:20)
[2019-07-12] MEDS ORDERED: CEPHALEXIN 500 MG CAPSULE PO ONE (23:30)
== END 2019-07-12 23:28 | disposition home or self-care (01) ==
LOC: ED 23:22
DX: Z95.0 Presence of cardiac pacemaker (principal); R00.0 Tachycardia, unspecified; I25.2 Old myocardial infarction; F17.200 Nicotine dependence, unspecified, uncomplicated
CPT/HCPCS: 93005; 99283

== ENCOUNTER 2019-07-15 17:51 | Emergency (ER) | payer MEDICAID, OTHER ==
[~2019-07-15] VITALS: Ht 165.1 cm; Wt 69.9 kg
[2019-07-15 17:53] VITALS: BP 107/68
--- NOTE | 2019-07-15 18:06 | NUR ---
RN to bedside patient on his cell phone speaking with family. Patient was told earlier when brought to room to change into gown. RN reiterated patient needs to be attached to a patient monitor. Patient verbalized understanding. Will return to check on patient after an appropriate amount of time to change into gown.
--- NOTE | 2019-07-15 18:17 | NUR ---
RN to bedside, patient changed into gown finally. Patient provided warm blanket. Provider to bedside, patient reports having been seen previously and had his pacemaker adjusted. Emergency department mechanic sound technician to bedside, completing electrocardiogram. dialysis biomed technician to bedside. Awaiting chest xray. RN will return after xray to attach to certified dietary manager and establish peripheral intravenous access per provider order.
[2019-07-15] MEDS ORDERED: SODIUM CHLORIDE FLUSH 10ML SYR IVF ONE (18:30)
--- NOTE | 2019-07-15 18:36 | NUR ---
Initiated peripheral intravenous access. Emergency department clinical research technician attached patient to talcer after chest xray. Blood draw sent to laboratory. Awaiting imaging and laboratory results.
[2019-07-15 18:39] LABS: BASOPHILS # (AUTO) 0.04 x10^3/uL (0-0.1); BASOPHILS % (AUTO) 0 % (0-1); EOSINOPHILS # (AUTO) 0.21 x10^3/uL (0-0.4); EOSINOPHILS % (AUTO) 2 % (1-7); LYMPHOCYTES # (AUTO) 2.89 x10^3/uL (1-3.4); LYMPHOCYTES % (AUTO) 33 % (22-44); MD NO; MEAN CORPUSCULAR HEMOGLOBIN 30.6 pg (27.5-34.5); MEAN CORPUSCULAR HGB CONC 33.8 g/dL (33.2-36.2); MEAN CORPUSCULAR VOLUME 90.7 fL (81-97); MEAN PLATELET VOLUME 7.2 fL (7.4-10.4); MONOCYTES # (AUTO) 0.51 x10^3/uL (0.2-0.8); MONOCYTES % (AUTO) 6 % (2-9); NEUTROPHILS # (AUTO) 5.15 x10^3/uL (1.8-6.8); NEUTROPHILS % (AUTO) 59 % (42-75); PLATELET COUNT 363 x10^3/uL (130-400); RED BLOOD COUNT 4.82 x10^6/uL (4.38-5.82); RED CELL DISTRIBUTION WIDTH 14.7 % (9.4-14.8)
[2019-07-15 18:51] LABS: ALBUMIN 3.6 g/dL (3.4-5.0); ANION GAP 7 mmol/L (5-15); CALCIUM 9.3 mg/dL (8.5-10.1); CHLORIDE 107 mmol/L (98-107)
[2019-07-15 18:57] LABS: ALANINE AMINOTRANSFERASE 26 U/L (12-78); ALKALINE PHOSPHATASE 87 U/L (45-117); BILIRUBIN,TOTAL 1.1 mg/dL (0.2-1.0); CREATININE 1.24 mg/dL (0.7-1.3); T4 (THYROXINE) 8.6 mcg/dL (4.5-12.1); TOTAL PROTEIN 7.5 g/dL (6.4-8.2); TROPONIN I < 0.015 ng/mL (0.000-0.045)
== END 2019-07-15 19:47 | disposition home or self-care (01) ==
LOC: ED 18:51
DX: R00.2 Palpitations (principal); R94.31 Abnormal electrocardiogram [ECG] [EKG]; I25.2 Old myocardial infarction; F17.210 Nicotine dependence, cigarettes, uncomplicated; Z95.0 Presence of cardiac pacemaker
CPT/HCPCS: 36415; 71045; 80053; 83735; 84436; 84443; 84484; 85025; 93005; 99285; 99406

== ENCOUNTER 2020-04-27 17:39 | Inpatient (IN) | payer MEDICAID ==
[~2020-04-27] VITALS: Ht 165.1 cm; Wt 69.7 kg
[~2020-04-27 17:39] MED LIST changes: -OXYC-302 PO; +OXYC1TAB14 PO
[2020-04-27] MEDS: MORPHINE SULFATE 4 MG/ML, 1ML IVPush ONE ×2 (18:30→18:37)
[2020-04-27] MEDS ORDERED: ONDANSETRON 2MG/ML, 2ML ONE (18:31)
[2020-04-27] MEDS ORDERED: MORPHINE SULFATE 4 MG/ML, 1ML ONE (18:32)
[2020-04-27] MEDS: ONDANSETRON 2MG/ML, 2ML IVPush ONE ×2 (18:37→19:12)
--- NOTE | 2020-04-27 18:43 | NUR ---
PT TO US.
--- NOTE | 2020-04-27 18:51 | NUR ---
REPORT NNEKA FUNEZ.
--- NOTE | 2020-04-27 18:59 | NUR ---
REPORT RECIEVED FROM DEE DEE BOOTHE. PT CURRENTLY AT ULTRASOUND
[2020-04-27] MEDS ORDERED: HYDROmorphone 1 MG/ML, 1ML INJ ONE (19:09)
--- NOTE | 2020-04-27 19:13 | NUR ---
morphine not administered, pt was at ultrasound and when he came back pt states he gets headaches from morphine. erp updated order for dilaudid obtained. morphine was non admin.
--- NOTE | 2020-04-27 19:26 | NUR ---
4 mg morphine wasted in [facility]. linn rn gave this rn jazz to admin and was given with dilaudid order. pt recieved no meds until 191
[2020-04-27] MEDS ORDERED: HYDROmorphone 2 MG/ML, 1ML IVPush PRN (19:30)
[2020-04-27 19:35] LABS: MICROSCOPIC NOT IND
[2020-04-27 19:38] LABS: BASOPHILS % (AUTO) 1 % (0-1); EOSINOPHILS % (AUTO) 1 % (1-7); LYMPHOCYTES % (AUTO) 22 % (22-44); MEAN CORPUSCULAR HEMOGLOBIN 31.2 pg (27.5-34.5); MEAN PLATELET VOLUME 7.4 fL (7.4-10.4); MONOCYTES % (AUTO) 7 % (2-9); NEUTROPHILS % (AUTO) 69 % (42-75); PLATELET COUNT 318 x10^3/uL (130-400); RED BLOOD COUNT 4.35 x10^6/uL (4.38-5.82); RED CELL DISTRIBUTION WIDTH 13.6 % (9.4-14.8)
[2020-04-27 19:39] LABS: MD NO
[2020-04-27 19:45] LABS: ANION GAP 6 mmol/L (5-15); CALCIUM 8.8 mg/dL (8.5-10.1); CHLORIDE 106 mmol/L (98-107); CREATININE 1.03 mg/dL (0.7-1.3)
--- NOTE | 2020-04-27 20:08 | NUR ---
PT STATES PAIN IN BETTER, NO OTHER NEEDS AT THIS TIME. AWAITING CT TO GET PATIENT
[2020-04-27] MEDS ORDERED: OMNIPAQUE 350 MG/ML, 100ML BOTTLE ONE (20:49)
[2020-04-27] MEDS ORDERED: CIPROFLOXACIN/PMX 400MG/200ML 200 ML IVPB ONE (21:30)
[2020-04-27] MEDS ORDERED: CIPROFLOXACIN/PMX 400MG/200ML 200 ML ONE (21:30)
[2020-04-27] MEDS ORDERED: DOXYCYCLINE 100 MG in DEXTROSE 5% 250 ML IV ONE (21:30)
--- NOTE | 2020-04-27 21:41 | NUR ---
LAB AT BEDSIDE FOR BLOOD CULTURE DRAW
--- NOTE | 2020-04-27 21:52 | NUR ---
abx hung after blood culture draw
[2020-04-27] MEDS ORDERED: HYDROmorphone 1 MG/ML, 1ML INJ IV ONE (22:00)
[2020-04-27] MEDS ORDERED: KETOROLAC 30 MG/1 ML IVPush ONE (22:30)
[2020-04-27] MEDS ORDERED: AMPICILLIN/SULBACTAM 3 GM in SODIUM CHLORIDE 0.9% 100 ML IV ONE (22:30)
--- NOTE | 2020-04-27 22:35 | NUR ---
denies pain at this time, abx still running, no other needs at this time
[2020-04-27] MEDS ORDERED: ONDANSETRON ODT 4 MG PO PRN (23:00)
[2020-04-27] MEDS ORDERED: AMPICILLIN/SULBACTAM 3 GM in SODIUM CHLORIDE 0.9% 100 ML IV SCH (23:00)
[2020-04-27] MEDS ORDERED: POLYETHYLENE GLYCOL 17 GM PACKET PO PRN (23:00)
[2020-04-27] MEDS ORDERED: BISACODYL 10 MG SUPP PR PRN (23:00)
[2020-04-27] MEDS ORDERED: HEPARIN 5,000 UNITS/ML, 1ML ONE (23:32)
[2020-04-27] MEDS ORDERED: KETOROLAC 30 MG/1 ML ONE (23:32)
[2020-04-27] MEDS: HEPARIN 5,000 UNITS/ML, 1ML SQ SCH (23:40)
[2020-04-27] MEDS: SODIUM CHLORIDE FLUSH 10ML SYR IVF SCH (23:41)
--- NOTE | 2020-04-28 01:34 | NUR ---
pt medictaed per emar, resting in hospital bed, no other needs at this time
--- NOTE | 2020-04-28 05:12 | NUR ---
PT SLEEPING IN BED, RESP EVEN/UNLABORED, MONITORS IN PLACE, CALL LIGHT WITHIN REACH
[2020-04-28 05:16] LABS: BASOPHILS % (AUTO) 1 % (0-1); EOSINOPHILS % (AUTO) 2 % (1-7); LYMPHOCYTES % (AUTO) 34 % (22-44); MEAN CORPUSCULAR HEMOGLOBIN 31.1 pg (27.5-34.5); MEAN CORPUSCULAR HGB CONC 34.1 g/dL (33.2-36.2); MEAN PLATELET VOLUME 7.4 fL (7.4-10.4); MONOCYTES % (AUTO) 10 % (2-9); NEUTROPHILS % (AUTO) 54 % (42-75); PLATELET COUNT 341 x10^3/uL (130-400); RED CELL DISTRIBUTION WIDTH 13.4 % (9.4-14.8)
[2020-04-28 05:19] LABS: MD NO
[2020-04-28 05:29] LABS: ANION GAP 7 mmol/L (5-15); CALCIUM 8.7 mg/dL (8.5-10.1); CHLORIDE 105 mmol/L (98-107)
[2020-04-28 05:31] LABS: CREATININE 0.96 mg/dL (0.7-1.3)
--- NOTE | 2020-04-28 07:09 | NUR ---
REPORT GIVEN TO DEE DEE RUSSELL
[2020-04-28] MEDS ORDERED: HEPARIN 5,000 UNITS/ML, 1ML ONE ×2 (07:52→16:06)
[2020-04-28] MEDS: HEPARIN 5,000 UNITS/ML, 1ML SQ SCH ×3 (08:03→23:09)
[2020-04-28] MEDS: AMPICILLIN/SULBACTAM 3 GM in SODIUM CHLORIDE 0.9% 100 ML IV SCH ×3 (08:03→23:09)
[2020-04-28] MEDS: SODIUM CHLORIDE FLUSH 10ML SYR IVF SCH ×2 (08:03→22:09)
[2020-04-28] MEDS ORDERED: SENNA/DOCUSATE TABLET ONE (09:36)
[2020-04-28] MEDS ORDERED: LISINOPRIL 10 MG TABLET ONE (09:36)
[2020-04-28] MEDS: LISINOPRIL 10 MG TABLET PO SCH ×2 (09:39→20:30)
[2020-04-28] MEDS: SENNA/DOCUSATE TABLET PO SCH (09:39)
[2020-04-28 09:45] VITALS: BP 114/75
[2020-04-28] MEDS: SPIRONOLACTONE 25 MG TABLET PO SCH (10:10)
[2020-04-28] MEDS: DOXYCYCLINE 100 MG in DEXTROSE 5% 250 ML IV SCH ×2 (10:10→22:08)
--- NOTE | 2020-04-28 12:37 | NUR ---
PT LUNCH TRAY DELIVERED
--- NOTE | 2020-04-28 13:51 | NUR ---
break RN note : pt ambultory to bathroom for void, gait steady. pt now back in bed, reattached to bp and spo2 monitors. pt rate 5/10 testicular pain which is improved from yesterday. unasyn infusion running at 200mL/hr. pt watching TV, call light in reach. pt a&o, resps even and unlabored, nadn.
[2020-04-28] MEDS ORDERED: ACETAMINOPHEN 325 MG TABLET ONE (13:59)
[2020-04-28] MEDS: ACETAMINOPHEN 325 MG TABLET PO PRN (14:01)
--- NOTE | 2020-04-28 16:47 | NUR ---
PHONE REPORT GIVEN TO DEE DEE SUMMERS
[2020-04-28 17:05] VITALS: BP 129/73
[2020-04-28 18:57] VITALS: BP 110/74
[2020-04-28] MEDS: morphine SULFATE 10 MG/ML, 1ML IVPush PRN (23:08)
[2020-04-29 00:18] VITALS: BP 119/81
[2020-04-29] MEDS: AMPICILLIN/SULBACTAM 3 GM in SODIUM CHLORIDE 0.9% 100 ML IV SCH ×3 (05:05→18:22)
[2020-04-29 07:23] VITALS: BP 109/69
[2020-04-29] MEDS: HEPARIN 5,000 UNITS/ML, 1ML SQ SCH ×2 (07:46→15:30)
[2020-04-29] MEDS: LISINOPRIL 10 MG TABLET PO SCH ×2 (07:46→20:49)
[2020-04-29] MEDS: SENNA/DOCUSATE TABLET PO SCH (07:47)
[2020-04-29] MEDS: SODIUM CHLORIDE FLUSH 10ML SYR IVF SCH ×2 (07:47→20:50)
[2020-04-29] MEDS: SPIRONOLACTONE 25 MG TABLET PO SCH (07:47)
[2020-04-29] MEDS: DOXYCYCLINE 100 MG in DEXTROSE 5% 250 ML IV SCH ×3 (10:11→23:24)
[2020-04-29 10:29] LABS: ANION GAP 6 mmol/L (5-15); BASOPHILS % (AUTO) 1 % (0-1); CALCIUM 9.8 mg/dL (8.5-10.1); CHLORIDE 108 mmol/L (98-107); CREATININE 0.97 mg/dL (0.7-1.3); EOSINOPHILS % (AUTO) 2 % (1-7); LYMPHOCYTES % (AUTO) 28 % (22-44); MEAN CORPUSCULAR HEMOGLOBIN 31.2 pg (27.5-34.5); MEAN CORPUSCULAR HGB CONC 34.1 g/dL (33.2-36.2); MONOCYTES % (AUTO) 7 % (2-9); NEUTROPHILS % (AUTO) 62 % (42-75); PLATELET COUNT 405 x10^3/uL (130-400); RED BLOOD COUNT 5.05 x10^6/uL (4.38-5.82); RED CELL DISTRIBUTION WIDTH 13.6 % (9.4-14.8)
[2020-04-29 10:35] LABS: MD NO
[2020-04-29 12:40] VITALS: BP 125/86
[2020-04-29 19:39] VITALS: BP 132/89
[2020-04-29] MEDS: ACETAMINOPHEN 325 MG TABLET PO PRN (20:07)
[2020-04-29] MEDS ORDERED: ALUMINUM/MAG/SIMETHICONE 30 ML UDC PO PRN (20:30)
[2020-04-29] MEDS: morphine SULFATE 10 MG/ML, 1ML IVPush PRN (20:49)
[2020-04-29] MEDS: NAPROXEN 250 MG TABLET PO SCH (21:30)
[2020-04-30] MEDS: AMPICILLIN/SULBACTAM 3 GM in SODIUM CHLORIDE 0.9% 100 ML IV SCH ×4 (00:27→18:29)
[2020-04-30] MEDS: HEPARIN 5,000 UNITS/ML, 1ML SQ SCH ×3 (00:28→17:04)
[2020-04-30 01:24] VITALS: BP 132/82
[2020-04-30 09:26] VITALS: BP 117/79
[2020-04-30] MEDS: LISINOPRIL 10 MG TABLET PO SCH ×2 (09:28→21:29)
[2020-04-30] MEDS: SPIRONOLACTONE 25 MG TABLET PO SCH (09:28)
[2020-04-30] MEDS: SODIUM CHLORIDE FLUSH 10ML SYR IVF SCH ×2 (09:29→21:31)
[2020-04-30] MEDS: NAPROXEN 250 MG TABLET PO SCH ×2 (09:34→21:29)
[2020-04-30] MEDS: SENNA/DOCUSATE TABLET PO SCH (09:34)
[2020-04-30 12:57] VITALS: BP 132/83
[2020-04-30 18:30] VITALS: BP 118/80
[2020-04-30] MEDS: morphine SULFATE 10 MG/ML, 1ML IVPush PRN (21:30)
[2020-05-01 00:17] VITALS: BP 113/72
[2020-05-01] MEDS: AMPICILLIN/SULBACTAM 3 GM in SODIUM CHLORIDE 0.9% 100 ML IV SCH ×2 (01:23→06:34)
[2020-05-01] MEDS: HEPARIN 5,000 UNITS/ML, 1ML SQ SCH ×2 (01:25→08:59)
[2020-05-01 06:37] VITALS: BP 116/76
[2020-05-01] MEDS: SPIRONOLACTONE 25 MG TABLET PO SCH (07:40)
[2020-05-01] MEDS: SENNA/DOCUSATE TABLET PO SCH (07:41)
[2020-05-01] MEDS: NAPROXEN 250 MG TABLET PO SCH (07:41)
[2020-05-01] MEDS: LISINOPRIL 10 MG TABLET PO SCH (07:41)
[2020-05-01] MEDS: SODIUM CHLORIDE FLUSH 10ML SYR IVF SCH (07:41)
[2020-05-01] MEDS ORDERED: AMOX1TAB64 PO (08:48)
== END 2020-05-01 10:00 | disposition home or self-care (01) | DRG 501 ==
LOC: ED 19:00 → EDIP 22:40 → 4NW 04-28 16:58 → DCLOUNGE 05-01 09:53
PROVIDERS: ADMIT Family Medicine; ATTEND Internal Medicine
DX: N45.3 Epididymo-orchitis (principal); N43.1 Infected hydrocele; N49.2 Inflammatory disorders of scrotum; F10.10 Alcohol abuse, uncomplicated; F15.10 Other stimulant abuse, uncomplicated; F17.210 Nicotine dependence, cigarettes, uncomplicated; I11.0 Hypertensive heart disease with heart failure; I50.22 Chronic systolic (congestive) heart failure; I86.1 Scrotal varices; K40.90 Unilateral inguinal hernia, without obstruction or gangrene, not specified as recurrent; N20.0 Calculus of kidney; N32.0 Bladder-neck obstruction; Z95.0 Presence of cardiac pacemaker; I25.2 Old myocardial infarction; Z90.49 Acquired absence of other specified parts of digestive tract
CPT/HCPCS: 36415; 74177; 76870; 80048; 81003; 85025; 87040; 87491; 87591; 96374; 96375; 99285; G0378; J0295; J0744; J1170; J1644; J1885; J2405; J7060; Q9967; J2270